=== PATIENT | male | born 1990 | race Caucasian/White ===

== ENCOUNTER 2018-03-18 17:14 | Emergency (ER) | payer OTHER ==
[~2018-03-18] VITALS: Ht 177.8 cm; Wt 81.6 kg
[2018-03-18 17:31] VITALS: BP 136/87
--- NOTE | 2018-03-18 17:32 | NUR ---
ARRIVAL PATIENT ARRIVED TO [facility] AMBULATORY, PATIENT STATES HE WAS AT WORK AND WHEN HE LIFTED A TIRE HE FELT A POP IN HIS RIGHT RIB AREA. WAS SENT TO THE ED BY HIS JOB FOR FURTHER EVAL.
--- NOTE | 2018-03-18 17:36 | ER.PDOC ---
General Chief Complaint: Trunk Pain/Injury Stated Complaint: RIB INJURY/W PAIN Time seen by MD: 17:29 Source: patient Exam Limitations: no limitations History of Present Illness Initial Comments Pt was lifting a tire at work and felt a sharp pain and a "pop" sensation on right side of rib cage Timing/Duration: 1-3 hours Severity/Quality: severe Radiation: no radiation Activities at Onset: none Prior CP/Workup: No Prior Chest Pain Past Medical History Medical History: other Surgical History: no surgical history Social History Smoking: non-smoker Alcohol Use: none Drug Use: none Musculoskeletal: see HPI All Other Systems: Reviewed and Negative Physical Exam General Appearance: No Apparent Distress, WD/WN HEENT: PERRL/EOMI, Normal ENT Inspection, TMs Normal, Pharynx Normal Neck: Non-Tender, Full Range of Motion, Supple, Normal Inspection Respiratory: chest non-tender, lungs clear, normal breath sounds, no respiratory distress, no accessory muscle use, other (tender anterior chest on deep inspiration and palpation) Cardiovascular: Normal Peripheral Pulses, Regular Rate, Rhythm, No Edema, No Gallop, No JVD, No Murmur Gastrointestinal: Normal Bowel Sounds, No Organomegaly, No Pulsatile Mass, Non Tender, Soft Extremities: Normal Range of Motion, Non-Tender, Normal Inspection, No Pedal Edema, No Calf Tenderness, Normal Capillary Refill Neurologic/Psychiatric: scouts II-XII NML as Tested, No Motor/Sensory Deficits, Alert, Normal Mood/Affect, Oriented x 3 Skin: Normal Color, Warm/Dry Lymphatic: No Adenopathy Departure Time of Disposition: 17:54 Disposition: 01 HOME, SELF-CARE Impression: Primary Impression: Rib pain Additional Impression: Intercostal muscle strain Condition: Stable Patient Instructions: Sprain Referrals: PCP,UNKNOWN (PCP) PRIMARY CARE PROVIDER Duration or Time Spent with Pa: 10 Problem Qualifiers JOSH COLE MD Mar 18, 2018 17:36
--- NOTE | 2018-03-18 17:50 | DIREP ---
PROCEDURE:XRAY RIBS W/PA CHEST 3VWS-RT COMPARISON:None. INDICATIONS:Rib pain, trauma TECHNIQUE: Frontal chest, and cone-down AP, coned-down oblique and 2 oblique views of the right ribs obtained. FINDINGS: Chest:Lungs are well aerated. No pneumothorax. Heart and mediastinum within normal limits. RIBS:No fracture. OTHER:No additional findings. CONCLUSION:Normal exam. No active pulmonary disease. No evidence of displaced rib fracture. No pneumothorax. Dictated by: Paul Raman MD on 03/18/2018 at 05:46 PM
[2018-03-18 18:05] VITALS: BP 136/87
== END 2018-03-18 18:00 | disposition home or self-care (01) ==
LOC: ER 17:14
DX: S29.011A Strain of muscle and tendon of front wall of thorax, initial encounter (principal); X50.0XXA Overexertion from strenuous movement or load, initial encounter; Y93.89 Activity, other specified; Y92.69 Other specified industrial and construction area as the place of occurrence of the external cause; Y99.0 Civilian activity done for income or pay
CPT/HCPCS: 99283; 71101-RT